=== PATIENT | female | born 1945 | race Caucasian/White ===

== ENCOUNTER 2017-09-26 22:36 | Emergency (ER) | payer MEDICARE ==
--- NOTE | 2017-09-26 23:09 | ED ---
Back Pain - HPI Summary HPI Summary: Pt is 71 y/o F c/o back pain s/p falling after being dragged by dog. Pain onset a few hours ago was rated a 15/10, per triage, and is described as "excruciating ". Denies: knee pain. No PMHx: Chronic back pain. States that she landed on bilateral knees and was dragged by dog. She managed to crawl over to her truck which she used to help her stand again. Pt took 2 tylenol to alleviate the pain. Pt takes blood thinners, Prednisone. - History of Current Complaint Chief Complaint: EDBackInjuryPain Stated Complaint: FALL/KNEE INJURY Time Seen by Provider: 09/26/17 23:02 Hx Obtained From: Patient Onset/Duration: Sudden Onset, Lasting Hours, Still Present Onset/Duration: Started Hours Ago, Still Present Timing: Constant Back Pain Location: Is Diffuse Severity Initially: Severe Severity Currently: Severe Pain Intensity: 15 Pain Scale Used: 0-10 Numeric Alleviating Symptom(s): OTC Meds Associated Signs And Symptoms: Negative: Fever, Other - neg: knee pain - Allergies/Home Medications Allergies/Adverse Reactions: Allergies Allergy/AdvReac Type Severity Reaction Status Date / Time cephalexin Allergy Unknown Verified 09/26/17 22:43 Reaction Details codeine Allergy Unknown Verified 09/26/17 22:43 Reaction Details meperidine [From Demerol] Allergy Unknown Verified 09/26/17 22:43 Reaction Details Sulfa (Sulfonamide Allergy Unknown Verified 09/26/17 22:43 Antibiotics) Reaction Details tramadol Allergy Palpitation Verified 09/26/17 22:43 s Home Medications: Home Medications Alendronate Sodium 70 mg PO WEEKLY 09/26/17 [History Confirmed 09/26/17] Cholecalciferol (Vitamin D3) [Vitamin D3] 2,000 unit PO DAILY 09/26/17 [History Confirmed 09/26/17] Cyanocobalamin TAB* [Vitamin B12 TAB*] 500 mcg PO DAILY 09/26/17 [History Confirmed 09/26/17] Lisinopril [Prinivil] 5 mg PO DAILY 09/26/17 [History Confirmed 09/26/17] Pantoprazole Sodium [Protonix] 40 mg PO DAILY 09/26/17 [History Confirmed ] Saccharomyces Boulardii [Probiotic] 500 mg PO DAILY 09/26/17 [History Confirmed 09/26/17] predniSONE [Prednisone 5 MG TAB] 10 mg PO DAILY 09/26/17 [History Confirmed ] PMH/Surg Hx/FS Hx/Imm Hx Previously Healthy: No Cardiovascular History: Reports: Hx Hypertension Respiratory History: Reports: Hx Chronic Obstructive Pulmonary Disease (COPD) - Surgical History Surgery Procedure, Year, and Place: TONSILECTOMY, APPY, HYSTERECTOMY, GALLBLADDER, CARPEL TUNNEL, TRIGGER FINGERS Infectious Disease History: No Infectious Disease History: Denies: Traveled Outside the [place] in Last 30 Days - Family History Known Family History: Positive: Cardiac Disease, Hypertension Negative: Diabetes - Social History Occupation: Disabled Lives: With Family Alcohol Use: Occasionally Substance Use Type: Reports: None Smoking Status (MU): Former Smoker Type: Cigarettes Length of Time of Smoking/Using Tobacco: 30+ YRS Have You Smoked in the Last Year: No Review of Systems Negative: Fever Positive: Other - pos: Back Pain; neg: knee pain All Other Systems Reviewed And Are Negative: Yes Physical Exam - Summary Physical Exam Summary: Appearance: Well-appearing, Well-nourished, lying in bed comfortably, cushingoid facies Skin: Warm, dry, no obvious rash, fragile, thin Eyes: sclera anicteric, no conjunctival pallor ENT: mucous membranes moist, pharynx appears normal Neck: Supple, nontender Respiratory: Clear to auscultation, no signs of respiratory distress Cardiovascular: Normal S1, S2. No murmurs. Normal distal pulses in tibial and radial bilaterally. Abdomen: Soft, nontender, normal active bowel sounds present Musculoskeletal: Normal, Strength/ROM Intact, Full ROM of legs, diffused tenderness L paraspinous Neurological: A&Ox3, awake and alert, mentation is normal, speech is fluent and appropriate Psychiatric: affect is normal, does not appear anxious or depressed Triage Information Reviewed: Yes Vital Signs On Initial Exam: Initial Vitals Temp Pulse Resp BP Pulse Ox 98.1 F 82 17 194/97 95 09/26/17 22:39 09/26/17 22:39 09/26/17 22:39 09/26/17 22:39 09/26/17 22:39 Vital Signs Reviewed: Yes Diagnostics - Vital Signs Vital Signs Temp Pulse Resp BP Pulse Ox 09/26/17 22:39 98.1 F 82 17 194/97 95 - Laboratory Lab Statement: Any lab studies that have been ordered have been reviewed, and results considered in the medical decision making process. - Radiology Lumbar spine XR Xray Interpretation: No Acute Changes - Negative for Fx. Radiology Interpretation Completed By: ED Physician - pending official review. Discharge - Discharge Plan Condition: Good Disposition: HOME Prescriptions: oxyCODONE TAB* [Roxycodone TAB 5 mg*] 5 mg PO Q4H PRN #12 tab MDD 4 tabs PRN Reason: Pain Patient Education Materials: Low Back Strain (ED) Referrals: Non Staff,Doctor [Medical Doctor] -
[2017-09-26] MEDS ORDERED: oxyCODONE TAB* 5 MG TAB PO ONE (23:12)
[2017-09-27 01:02] VITALS: BP 158/90
--- NOTE | 2017-09-27 09:43 | RAD ---
INDICATION: Back pain after being pulled off her feet by her dog COMPARISON: None. TECHNIQUE: 3 views of the lumbar spine were obtained. FINDINGS: The vertebra are in normal alignment. No fracture is seen. Disc spaces appear maintained. Incidental note is made of 2 endovascular stents overlying the left of midline L2 vertebral body on the AP view, possibly renal artery stents. IMPRESSION: 1. No radiographically apparent fracture or dislocation involving the lumbar spine. 2. Incidentally noted are 2 endovascular stents overlying the left of midline L2 vertebral body, possibly renal artery stents. Please correlate to the patient's surgical history.
== END 2017-09-27 01:14 | disposition home or self-care (01) ==
LOC: ED 22:36
DX: M54.9 Dorsalgia, unspecified (principal); I10 Essential (primary) hypertension; J44.9 Chronic obstructive pulmonary disease, unspecified; Z88.1 Allergy status to other antibiotic agents; Z88.5 Allergy status to narcotic agent; Z88.2 Allergy status to sulfonamides; Z82.49 Family history of ischemic heart disease and other diseases of the circulatory system; Z87.891 Personal history of nicotine dependence
CPT/HCPCS: 72100; 99283